=== PATIENT | female | born 1965 | race Two or more races ===

== ENCOUNTER 2023-05-30 12:51 | Emergency (ER) | payer OTHER ==
[~2023-05-30] VITALS: Ht 165.1 cm; Wt 113.0 kg
[2023-05-30] MEDS ORDERED: EPINEPHrine HCL 1 MG/10 ML SYRG IV ONE (12:52)
[2023-05-30] MEDS ORDERED: AMIODARONE HCL (50 MG/ ML) 3 ML VIAL IV ONE (12:52)
[2023-05-30] MEDS ORDERED: CALCIUM CHLOR(10%) 100MG/ML 10ML SYRINGE IV ONE (12:52)
[2023-05-30] MEDS ORDERED: SODIUM BICARBONATE 8.4% INJ 50ML SYRINGE IV ONE (12:52)
[2023-05-30 13:20] VITALS: BP 0/0; PULSE 0; RESP 0; TEMP 99.7; O2SAT 0
== END 2023-05-30 13:13 ==
LOC: ER 12:51 → EDBD 12:51 → EDSEX 12:51 → ER 13:13
DX: I46.9 Cardiac arrest, cause unspecified (principal); E11.9 Type 2 diabetes mellitus without complications; Z98.890 Other specified postprocedural states; Z88.8 Allergy status to other drugs, medicaments and biological substances
CPT/HCPCS: 31500; 36556; 99285; J0171; J0282